=== PATIENT | male | born 1935 | race Caucasian/White ===

== ENCOUNTER 2017-08-04 12:12 | Emergency (ER) | payer OTHER ==
--- NOTE | 2017-08-04 12:58 | CPEKG ---
Heart Rate: 69 RR Interval: 870 P-R Interval: 152 QRSD Interval: 142 QT Interval: 440 QTC Interval: 472 P [place]: 70 QRS [place]: -67 T Wave [place]: 107 EKG Severity - ABNORMAL ECG - EKG Impression: SINUS RHYTHM EKG Impression: NONSPECIFIC IVCD WITH LAD EKG Impression: LEFT VENTRICULAR HYPERTROPHY EKG Impression: ANTERIOR Q WAVES, POSSIBLY DUE TO LVH Electronically Signed By: Suzette Almazan 04-Aug-2017 17:41:37
--- NOTE | 2017-08-04 13:28 | EDPHY ---
H & P Time Seen by Provider: 08/04/17 12:56 HPI/ROS: CHIEF COMPLAINT: Cough, Shortness of breath HISTORY OF PRESENT ILLNESS: The patient is an 82-year-old male with history of CHF and DM presents to the ED with cough and shortness of breath. The patient arrived from [place] over a month ago. He arrived with a dry cough and was started on 6 days of antibiotics. After completing the antibiotics (about 6 days ago) he felt his symptoms improved. However, for the past two nights the patient has been coughing during the night. He feels more short of breath than usual. His daughter gave him an asthma treatment, without relief. The patient has a history of CHF which tends to cause lower extremity swelling, he has not noticed an increase in lower extremity swelling since onset of his symptoms. REVIEW OF SYSTEMS: A comprehensive 10 point review of systems is otherwise negative aside from elements mentioned in the history of present illness. Past Medical/Surgical History: CHF, DM Social History: Daughter at bedside, providing translation. Smoking Status: Never smoked Physical Exam: General Appearance: Alert, pleasant Eyes: Pupils equal and round, no conjunctival pallor or injection ENT, Mouth: Mucous membranes moist Neck: Normal inspection Respiratory: normal respiratory rate, rales at the bases bilaterally Cardiovascular: Regular rate and rhythm Gastrointestinal: Abdomen is soft and non-tender Neurological: A&O, nonfocal, normal gait Skin: Warm and dry, no rash Extremities: Nontender, trace pedal edema Psychiatric: Mood and affect normal Constitutional: Initial Vital Signs Temperature (C) 36.5 C 08/04/17 12:18 Heart Rate 67 08/04/17 12:18 Respiratory Rate 18 08/04/17 12:18 Blood Pressure 129/88 H 08/04/17 12:18 O2 Sat (%) 97 08/04/17 12:18 O2 Delivery Mode Room Air Allergies/Adverse Reactions: No Known Allergies Allergy (Unverified 08/04/17 12:16) Home Medications: Medication Instructions Recorded Doxycycline Hyclate 100 mg PO BID #20 tablet 08/04/17 Glimepiride 08/04/17 Lasix 08/04/17 Metoprolol Oral Susp (*) 08/04/17 Spironolactone 08/04/17 Tradjenta 08/04/17 Medical Decision Making - Diagnostics EKG Interpretation: EKG interpreted by me reveals normal sinus rhythm, rate 69, LVH. Impression: Abnormal EKG Imaging Results: CXR reviewed by me: no infiltrate or pulm edema. Imaging: I viewed and interpreted images myself ED Course/Re-evaluation: This pt presents today with continued cough and slightly worsening shortness of breath. The patient finished antibiotics 6 days ago for possible pneumonia. Over the past two days the patient has been coughing at night. His cough is nonproductive, but sounds rattled. On examination the patient has rales at the bases bilaterally as well as trace lower extremity edema. His O2 saturation here is 97% on room air. I reviewed his chest x-ray which is unremarkable. I ordered lab work including BMP, BNP, and CBC to help differentiate between bronchitis/pneumonia vs CHF. If the BNP is within the normal range for his age , I will treat him for possible pneumonia. BNP slightly elevated, ok for age. Doubt CHF. Will give rx for doxycycline for possible pneumonia, given his advanced age and comorbidities. Oxygen saturation is 96% on room air and I feel that he is safe to go home with his family. Pt and daughter agree with this plan, will return for worsening sx. Differential Diagnosis: Differential diagnosis includes though it is not limited to pneumonia, pneumothorax, pulmonary embolism, aortic dissection, pericarditis, acute coronary syndrome. - Data Points Laboratory Results: Laboratory Results 08/04/17 13:05 08/04/17 13:05 Departure - Departure Disposition: Home, Routine, Self-Care Clinical Impression: Acute bronchitis Condition: Good Instructions: Acute Bronchitis (ED) Additional Instructions: Take the full course of antibiotics as directed. You have been referred to our on-call primary care physician below, please call to arrange followup as needed. Return to the emergency department with continued cough, shortness of breath, chest pain, or worsening symptoms. [place] el curso completo de los antibioticos cheikh se le indico. Usted rao sido referido con nuestro medico de cuidado primario en helder, por favor llame para programar un seguimiento cheikh sea necesario. Regrese al departamento de emergencias si continua con la tos, si le falta la respiracion, dolor de pecho, o si los sintomas empeoran. Referrals: REHAN ALEXANDRE [Other] - As per Instructions Dino Ho MD [Medical Doctor] - As per Instructions (house calls nurse practitioner primary care physician) Prescriptions: Doxycycline Hyclate 100 mg PO BID #20 tablet Print Language: Qatari Report Scribed for: Suzette Almazan Report Scribed by: Pat Bunch Date of Report: 08/04/17 Time of Report: 13:28 Physician Review and Approval Statement: 08/04/17 13:28 Portions of this note were transcribed by a medical technologist. I personally performed the history, physical exam, and medical decision-making; and confirmed the accuracy of the information in the transcribed note.
[2017-08-04 13:40] LABS: % IMMATURE GRANULYOCYTES 0.5 % (0.0-1.1); ABSOLUTE IMMATURE GRANULOCYTES 0.04 10^3/uL (0.00-0.10); ADD DIFF? NO; ADD MORPH? NO; ADD SCAN? NO; ATYPICAL LYMPHOCYTE FLAG 0 (0-99); FRAGMENT RBC FLAG 0 (0-99); HEMATOCRIT 42.7 % (40.0-51.0); HEMOGLOBIN 14.8 g/dL (13.7-17.5); LEFT SHIFT FLG 0 (0-99); LIPEMIA HEMOLYSIS FLAG 90 (0-99); MEAN CELL HEMOGLOBIN 31.1 pg (27.9-34.1); MEAN CELL HEMOGLOBIN CONCENTR. 34.7 g/dL (32.4-36.7); MEAN CELL VOLUME 89.7 fL (81.5-99.8); MEAN PLATELET VOLUME 12.4 fL (8.7-11.7); PLATELET CLUMPS FLAG 0 (0-99); PLATELET COUNT 217 10^3/uL (150-400); RED BLOOD CELL COUNT 4.76 10^6/uL (4.40-6.38)
[2017-08-04 13:53] LABS: ANION GAP 12 mEq/L (8-16); CALCIUM 9.2 mg/dL (8.5-10.4); CARBON DIOXIDE 23 mEq/l (22-31); CHLORIDE 103 mEq/L (97-110); CREATININE 1.5 mg/dL (0.7-1.3); GLOMERULAR FILTRATION RATE 45; GLUCOSE 224 mg/dL (70-100); POTASSIUM 4.5 mEq/L (3.5-5.2); SODIUM 138 mEq/L (134-144)
[2017-08-04 14:11] VITALS: BP 110/70; PULSE 71; RESP 16; TEMP 97.7; O2SAT 96
== END 2017-08-04 14:25 | disposition home or self-care (01) ==
DX: J20.9 Acute bronchitis, unspecified (principal); I50.9 Heart failure, unspecified; E11.9 Type 2 diabetes mellitus without complications